=== PATIENT | male | born 1955 | race Caucasian/White ===

== ENCOUNTER 2017-01-08 09:47 | Day surgery (SDC) | payer BC ==
[~2017-01-08] VITALS: Ht 188 cm; Wt 88.5 kg
[2017-01-08] MEDS ORDERED: ALBUTEROL SULFATE 0.083% 2.5 MG/3 ML VIAL.NEB INH ONE (10:54)
[2017-01-08] MEDS ORDERED: IPRATROPIUM BROM 0.5 MG/2.5 ML VIAL.NEB (ATROVENT) INH ONE (10:54)
[2017-01-08] MEDS ORDERED: EPINEPHrine 1 MG/ML AMP IVP ONE (13:46)
[2017-01-08] MEDS ORDERED: MIDAZOLAM HCL 5 MG/5 ML VIAL IVP ONE (13:46)
[2017-01-08] MEDS ORDERED: LR 1,000 ML IV.SOLN IV ONE (13:46)
[2017-01-08] MEDS ORDERED: WATER FOR IRRIGATION,STERILE 1,000 ML IRRIG.SOLN IR ONE (13:46)
[2017-01-08] MEDS ORDERED: BACITRACIN ZINC 15 GM TOPICAL OINTMENT TP ONE (13:46)
[2017-01-08] MEDS ORDERED: SEVOFLURANE 15 MIN GAS INH ONE (13:46)
[2017-01-08] MEDS ORDERED: NS 50 ML BAG IV ONE (13:46)
[2017-01-08] MEDS ORDERED: METOCLOPRAMIDE HCL 10 MG/2 ML VIAL IVP ONE (13:46)
[2017-01-08] MEDS ORDERED: SUCCINYLCHOLINE CHLORIDE 20 MG/ML(QUELICIN) IVP ONE (13:46)
[2017-01-08] MEDS ORDERED: OXYMETAZOLINE HCL 0.05% NASAL SPRAY NS ONE (13:46)
[2017-01-08] MEDS ORDERED: NS IRRIG SOLN 1000 ML IR ONE (13:46)
[2017-01-08] MEDS ORDERED: DEXAMETHASONE SOD PHOSPHATE 4 MG/ML VIAL IVP ONE (13:46)
[2017-01-08] MEDS ORDERED: GLYCOPYRROLATE 0.2 MG/ML VIAL IJ ONE (13:46)
[2017-01-08] MEDS ORDERED: NEOSTIGMINE METHYLSULFATE 1 MG/ML, 10 ML VIAL IVP ONE (13:46)
[2017-01-08] MEDS ORDERED: ROCURONIUM BROMIDE 10 MG/ML (ZEMURON) IV ONE (13:46)
[2017-01-08] MEDS ORDERED: PROPOFOL 200MG/ 20ML VIAL (DIPRIVAN) IV ONE (13:46)
[2017-01-08] MEDS ORDERED: fentaNYL CITRATE 250 MCG/5 ML AMP IV ONE (13:46)
[2017-01-08] MEDS ORDERED: LIDOCAINE/EPI 1% 1:100000 20 ML VIAL INJ ONE (13:46)
[2017-01-08] MEDS ORDERED: LR 1,000 ML IV ONE (14:46)
[2017-01-08] MEDS ORDERED: ePHEDrine sulfate 50 MG/ML VIAL IVP PRN (15:00)
[2017-01-08] MEDS ORDERED: fentaNYL CITRATE/PF 100 MCG/2 ML AMP IVP PRN (15:00)
[2017-01-08] MEDS ORDERED: ONDANSETRON HCL 4 MG/2 ML VIAL IVP PRN ×2 (15:00)
[2017-01-08] MEDS ORDERED: NALBUPHINE HCL 10 MG/ML AMP IVP PRN (15:00)
[2017-01-08] MEDS ORDERED: NALOXONE HCL 0.4 MG/ML AMP (NARCAN) IVP PRN (15:00)
[2017-01-08] MEDS ORDERED: DIPHENHYDRAMINE INJ 50 MG/ML VIAL IVP PRN (15:00)
[2017-01-08 17:57] VITALS: BP_SYST 143
== END 2017-01-08 18:40 | disposition home or self-care (01) ==
LOC: SDS 09:47 → SMU 09:48 → EDSEX 11:15 → SDS 18:40
PROVIDERS: ATTEND Otolaryngology
DX: J32.9 Chronic sinusitis, unspecified (principal); J34.89 Other specified disorders of nose and nasal sinuses; H65.01 Acute serous otitis media, right ear; E78.00 Pure hypercholesterolemia, unspecified; K21.9 Gastro-esophageal reflux disease without esophagitis; F41.9 Anxiety disorder, unspecified; G25.0 Essential tremor; Z79.899 Other long term (current) drug therapy; Z79.82 Long term (current) use of aspirin
CPT/HCPCS: 31255; 31267; 31296; 69436; 88305; 88311; 94640; C1726; J0171; J0330; J1100; J2250; J2704; J2710; J2765; J3010; J3490; J7120; L8699